=== PATIENT | male | born 1960 | race Caucasian/White ===

== ENCOUNTER 2017-06-20 06:24 | Day surgery (SDC) | payer BC, OTHER ==
[~2017-06-20 06:24] MED LIST: Lactated Ringers 1,000 ML IV SCH
[2017-06-20] MEDS ORDERED: fentaNYL 100 MCG/2 ML SDV ONE (07:39)
[2017-06-20] MEDS ORDERED: Propofol 200 MG/20 ML SDV ONE ×2 (07:39→07:56)
--- NOTE | 2017-06-20 10:41 | OR ---
PREOPERATIVE DIAGNOSIS: Screening colonoscopy. POSTOPERATIVE DIAGNOSIS: Essentially normal colonoscopic exam. PROCEDURE PROPOSED: Total flexible colonoscopy. PROCEDURE DONE: Total flexible colonoscopy. INDICATION: This is a 57-year-old gentleman who comes in for his 1st colonoscopic exam for screening purposes. He denies any symptomatology and he has a negative family history for polyps or colon cancer. TECHNIQUE: The patient was brought to the endoscopy suite, placed in left lateral decubitus position. He was sedated per [employer] with propofol. A flexible video colonoscope was then passed transanally and under visualization was able to advance it around the hepatic flexure and got a good visualization of the ileocecal valve and in depth of the cecum, although I was unable to get the scope right down into the cecum, I had a good visualization and there was no evidence of any polyps or abnormalities in the cecal and ascending colon. Area of the transverse and descending colon were also normal. The sigmoid and rectal colon also revealed no signs of any diverticulosis or polyps and the remainder of the exam was essentially normal. No other abnormalities were noted and the scope was then withdrawn. The patient tolerated procedure well. FINAL IMPRESSION: Essentially normal colonoscopic exam. PLAN: The patient is reassured. I felt he could wait 10 years before he needs a repeat colonoscopy. SCM: 06/20/2017 08:13:22 MODL: 06/20/2017 10:31:36 /[id number]
[2017-06-20 11:55] VITALS: BP 108/71
== END 2017-06-20 09:20 | disposition home or self-care (01) ==
LOC: VM.SDS 06:24
PROVIDERS: ATTEND Surgery
DX: Z12.11 Encounter for screening for malignant neoplasm of colon (principal); F43.23 Adjustment disorder with mixed anxiety and depressed mood; F32.9 Major depressive disorder, single episode, unspecified; Z98.52 Vasectomy status; Z88.0 Allergy status to penicillin; Z98.890 Other specified postprocedural states
CPT/HCPCS: 45378; J2704; J3010; J7120